=== PATIENT | female | born 1990 | race American Indian/Alaskan Native ===

== ENCOUNTER 2019-09-17 11:34 | Emergency (ER) | payer SELFPAY ==
[2019-09-17 11:42] VITALS: BP 108/67
--- NOTE | 2019-09-17 11:48 | Emergency Department Report ---
Blank Doc - Documentation Documentation: 29 year old non smoker with 3 day of productive cough and chest pain with back aches. his initial assessment/diagnostic orders/clinical plan/treatment(s) is/are subject to change based on patient's health status, clinical progression and re- assessment by fellow clinical providers in the ED. Further treatment and workup at subsequent clinical providers discretion. Patient/guardians urged not to elope from the ED as their condition may be serious if not clinically assessed and managed. Initial orders include: CXR and UPT
[2019-09-17 12:26] LABS: Bilirubin,Urine NEG (Negative); Blood,Urine NEG (Negative); Color,Urine Yellow (Yellow); Mucus,Urine FEW /HPF; Protein,Urine <15 mg/dL mg/dL (Negative); Urobilinogen,Urine < 2.0 mg/dL (<2.0)
[2019-09-17 12:29] LABS: HCG Qualitative,Urine Negative (Negative)
--- NOTE | 2019-09-17 12:59 | XRay Report ---
CHEST 2 VIEWS INDICATION: chest pain. COMPARISON: None. FINDINGS: Support devices: None. Heart: Within normal limits. Pulmonary vasculature: Normal. Lungs/pleura: The lungs are normally expanded and clear. No pleural effusion. No pneumothorax. Additional findings: None. IMPRESSION: Normal chest. Signer Name: Ranjeet Garvey MD Signed: 09/17/2019 12:55 PM Workstation Name: [id number]
--- NOTE | 2019-09-17 14:14 | Emergency Department Report ---
- General Chief Complaint: Abdominal Pain Stated Complaint: CHEST/ABD/BACK PAIN Time Seen by Provider: 09/17/19 11:41 Source: patient Mode of arrival: Ambulatory Limitations: No Limitations - History of Present Illness Initial Comments: Patient is a 29-year-old [place] female who is presenting with a productive cough chills for the past week. Patient states she's also has had some congestion. She denies nausea vomiting neck stiffness. She states the cough is productive of yellow sputum. Patient states that when she coughs she also feels some discomfort in her lower abdomen as well but she denies vaginal discharge or vaginal bleeding. - Related Data Previous Rx's Medication Instructions Recorded Last Taken Type ALBUTEROL Inhaler (OR & NICU) 2 puff IH QID PRN #1 inhalation 09/17/19 Unknown Rx [ProAir HFA Inhaler] Azithromycin [Zithromax Z-ABEL] 250 mg PO DAILY #6 tablet 09/17/19 Unknown Rx Benzonatate [Tessalon Perles] 100 mg PO Q8HR #10 capsule 09/17/19 Unknown Rx predniSONE [Deltasone] 20 mg PO QDAY #5 tab 09/17/19 Unknown Rx Allergies Allergy/AdvReac Type Severity Reaction Status Date / Time amoxicillin Allergy Shortness Verified 09/17/19 11:36 of Breath penicillin G procaine Allergy Shortness Verified 09/17/19 11:36 of Breath ED Review of Systems ROS: Stated complaint: CHEST/ABD/BACK PAIN Other details as noted in HPI Comment: All other systems reviewed and negative ED Past Medical Hx - Past Medical History Previous Medical History?: No - Surgical History Additional Surgical History: TONSILS - Social History Smoking Status: Never Smoker Substance Use Type: None - Medications Home Medications: Home Medications Medication Instructions Recorded Confirmed Last Taken Type ALBUTEROL Inhaler (OR & NICU) 2 puff IH QID PRN #1 inhalation 09/17/19 Unknown Rx [ProAir HFA Inhaler] Azithromycin [Zithromax Z-ABEL] 250 mg PO DAILY #6 tablet 09/17/19 Unknown Rx Benzonatate [Tessalon Perles] 100 mg PO Q8HR #10 capsule 09/17/19 Unknown Rx predniSONE [Deltasone] 20 mg PO QDAY #5 tab 09/17/19 Unknown Rx ED Physical Exam - General Limitations: No Limitations General appearance: alert, in no apparent distress - Head Head exam: Present: atraumatic, normocephalic - Eye Eye exam: Present: normal appearance, PERRL, EOMI - ENT ENT exam: Present: mucous membranes moist - Neck Neck exam: Present: normal inspection - Respiratory Respiratory exam: Present: normal lung sounds bilaterally, rhonchi. Absent: respiratory distress, wheezes, rales, stridor - Cardiovascular Cardiovascular Exam: Present: regular rate, normal rhythm, normal heart sounds. Absent: systolic murmur, diastolic murmur, rubs, gallop - GI/Abdominal GI/Abdominal exam: Present: soft, normal bowel sounds. Absent: distended, tenderness, guarding - Extremities Exam Extremities exam: Present: normal inspection - Back Exam Back exam: Present: normal inspection - Neurological Exam Neurological exam: Present: alert, oriented X3 - Psychiatric Psychiatric exam: Present: normal affect, normal mood - Skin Skin exam: Present: warm, dry, intact, normal color. Absent: rash ED Course Vital Signs 09/17/19 09/17/19 11:40 12:11 Temperature 98.7 F Pulse Rate 83 Respiratory 18 18 Rate Blood Pressure 108/67 O2 Sat by Pulse 100 100 Oximetry ED Medical Decision Making - Lab Data Lab Results 09/17/19 Range/Units 11:54 Urine Color Yellow (Yellow) Urine Turbidity Hazy (Clear) Urine pH 6.0 (5.0-7.0) Ur Specific Tarzan 1.017 (1.003-1.030) Urine Protein <15 mg/dl (Negative) mg/dL Urine Glucose (UA) Neg (Negative) mg/dL Urine Ketones Neg (Negative) mg/dL Urine Blood Neg (Negative) Urine Nitrite Neg (Negative) Urine Bilirubin Neg (Negative) Urine Urobilinogen < 2.0 (<2.0) mg/dL Ur Leukocyte Esterase Neg (Negative) Urine WBC (Auto) 2.0 (0.0-6.0) /HPF Urine RBC (Auto) 4.0 (0.0-6.0) /HPF U Epithel Cells (Auto) 24.0 H (0-13.0) /HPF Urine Mucus Few /HPF Urine HCG, Qual Negative (Negative) - Radiology Data CXR x-ray is within normal limits - Medical Decision Making Patient is a 29% female who is presenting with a productive cough chills. Patient's symptoms present for over a week. Duration symptoms patient will be treated with a Z-Abel and other medicines for symptomatic relief. Critical care attestation.: If time is entered above; I have spent that time in minutes in the direct care of this critically ill patient, excluding procedure time. ED Disposition Clinical Impression: Acute bronchitis Qualifiers: Bronchitis organism: unspecified organism Qualified Code(s): J20.9 - Acute bronchitis, unspecified Disposition: DC- TO HOME OR SELFCARE Is pt being admited?: No Does the pt Need Aspirin: No Condition: Stable Instructions: Acute Bronchitis (ED) Referrals: PRIMARY CARE, [Primary Care Provider] - 3-5 Days Time of Disposition: 14:13
== END 2019-09-17 14:38 | disposition home or self-care (01) ==
LOC: ED 11:34
DX: J20.9 Acute bronchitis, unspecified (principal); Z88.0 Allergy status to penicillin; Z88.1 Allergy status to other antibiotic agents; Z79.899 Other long term (current) drug therapy
CPT/HCPCS: 71046; 81001; 81025; 99283